=== PATIENT | female | born 1995 | race Caucasian/White ===

== ENCOUNTER 2024-05-30 14:50 | Emergency (ER) | payer BC, OTHER ==
[~2024-05-30] VITALS: Ht 162.6 cm; Wt 99.8 kg
[2024-05-30 15:00] VITALS: BP 123/80; PULSE 73; RESP 18; TEMP 98; O2SAT 99
[2024-05-30 15:48] LABS: APPEARANCE,URINE CLEAR (CLEAR); BILIRUBIN,URINE NEGATIVE (NEGATIVE); BLOOD, URINE NEGATIVE (NEGATIVE); COLOR,URINE YELLOW (YELLOW); LEUKOCYTE ESTERASE ,URINE NEGATIVE (NEGATIVE); NITRITE, URINE NEGATIVE (NEGATIVE); PH,URINE 7.5 (5.0-9.0); PROTEIN,URINE NEGATIVE (NEGATIVE); UGLUCOSE NEGATIVE (NEGATIVE); UROBILINOGEN,URINE 0.2 EU/dL (0.2 - 1)
[2024-05-30] MEDS: KETOROLAC 30 MG/ML VIAL IM ONE (16:18)
[2024-05-30] MEDS: LIDOCAINE 5% 1 EA PATCH TP ONE (16:18)
[2024-05-30] MEDS ORDERED: IBUP-2218 PO (16:27)
[2024-05-30] MEDS ORDERED: LIDO1ADH54 TP (16:27)
[2024-05-30] MEDS ORDERED: ACET500T99 PO (16:27)
[2024-05-30] MEDS ORDERED: CYCL-711 PO (16:27)
== END 2024-05-30 16:55 | disposition home or self-care (01) ==
LOC: MED 14:50
DX: S39.012A Strain of muscle, fascia and tendon of lower back, initial encounter (principal); Z79.899 Other long term (current) drug therapy; X58.XXXA Exposure to other specified factors, initial encounter; Y93.89 Activity, other specified; Y92.89 Other specified places as the place of occurrence of the external cause; Y99.8 Other external cause status
CPT/HCPCS: 81003; 81025; 96372; 99283; J1885